=== PATIENT | female | born 1955 | race Caucasian/White ===

== ENCOUNTER 2017-06-03 14:29 | Observation (INO) | payer BC ==
[~2017-06-03] VITALS: Ht 162.6 cm; Wt 91.2 kg
[~2017-06-03 14:29] MED LIST: LACTATED RINGER'S 1000 ML INJ 1,000 ML IV ONE; NEOSTIGMINE 3 MG/3 ML SYR IV ONE; ONDANSETRON HCL 4 MG/2 ML VIAL IV PUSH ONE; PHENYLEPH/NS 1000 MCG/10 ML SYR IV ONE; PROPOFOL 200 MG/20 ML AMP IV ONE
[2017-06-03 14:31] VITALS: BP 132/62; PULSE 94; RESP 20; TEMP 99.9; O2SAT 93
--- NOTE | 2017-06-03 14:39 | PD ---
Physical Exam Time Seen by Provider: 14:36 Narrative 62yo F c/o lower abd pain since Saturday sent by Urgent Care. Denies N, V. + diarrhea. +subjective fevers. +cold shills and sweating. Urgent care said she had trace of blood in urine. Patient seen in triage. VS reviewed. Awaiting bed placement. Data Data Last Documented VS Vital Signs Date Time Temp Pulse Resp B/P Pulse Ox O2 Delivery O2 Flow Rate FiO2 06/03/17 14:31 99.9 94 20 132/62 93 Room Air MDM Supervised Visit with ARON: Lauren Allen Jun 03, 2017 14:39
[2017-06-03] MEDS ORDERED: LIPI10TA PO (15:22)
[2017-06-03] MEDS ORDERED: SODIUM CHLORIDE 0.9% FLUSH 10 ML FLUSH IV FLUSH PRN ×2 (15:30→23:15)
[2017-06-03] MEDS ORDERED: MORPHINE SULFATE 4 MG/ML INJ IV PUSH ONE ×2 (15:45→20:00)
[2017-06-03] MEDS ORDERED: ONDANSETRON HCL 4 MG/2 ML VIAL IV ONE (15:45)
[2017-06-03 16:05] LABS: AUTOMATED NEUTROPHIL # 9.7 TH/MM3 (1.8-7.7); BASOPHIL % 0.3 % (0.0-2.0); EOSINOPHIL % 0.1 % (0.0-4.0); HEMATOCRIT 43.7 % (35.0-46.0); HEMO FLAGS DIFF FINAL; LYMPH % 9.7 % (9.0-44.0); LYMPHOCYTE # 1.1 TH/MM3 (1.0-4.8); MEAN CELL VOLUME 92.4 FL (80.0-100.0); MEAN CORPUSCULAR HEMOGLOBIN 31.8 PG (27.0-34.0); MEAN CORPUSCULAR HGB CONC 34.4 % (32.0-36.0); MONO % 6.1 % (0.0-8.0); NEUT % 83.8 % (16.0-70.0); PLATELET COUNT 172 TH/MM3 (150-450); RED BLOOD COUNT 4.73 MIL/MM3 (4.00-5.30); RED CELL DISTRIBUTION WIDTH 14.4 % (11.6-17.2); WHITE BLOOD COUNT 11.6 TH/MM3 (4.0-11.0)
[2017-06-03 16:07] LABS: BLOOD, URINE TRACE (NEG); COMMENT (UR) CULT NOT INDICATED; CULTURE IF INDICATED CULT NOT INDICATED; GLUCOSE,URINE TRACE mg/dL (NEG); HYALINE CAST, URINE 3 /lpf (RARE); KETONE, URINE 10 mg/dL (NEG); MUCUS URINE FEW /lpf (OCC); NITRITE,URINE NEG (NEG); PH, URINE 5.5 (5.0-8.5); SQUAMOUS EPITHELIAL CELL URINE 4 /hpf (0-5); URINE COLOR DARK-YELLOW (YELLW/STRAW)
[2017-06-03 16:41] LABS: APTT (PATIENT) 24.7 SEC (24.3-30.1); PROTHROMBIN TIME - PATIENT 11.3 SEC (9.8-11.6)
--- NOTE | 2017-06-03 17:00 | PD ---
HPI Chief Complaint: Abdominal Pain Time Seen by Provider: 15:14 Travel History International Travel<30 days: No Contact w/Intl Traveler<30days: No Traveled to known affect area: No History of Present Illness HPI The patient was seen and examined in the presence of the nurse. This patient complains of abdominal pain. Location is left lower quadrant. Duration 2 days. She's had some low-grade temperatures. No vomiting or rectal bleeding. She does not have any history of abdominal problems. Symptoms severity is moderate. No alleviating factors. PFSH Past Surgical History Surgical History: No Previous Surgery Social History Alcohol Use: Yes (2-3 DRINKS/DAILY) Tobacco Use: No Substance Use: No Allergies-Medications (Allergen,Severity, Reaction): Coded Allergies: Sulfa (Verified Allergy, Unknown, 06/03/17) Tylenol/Codeine (Verified Allergy, Unknown, 06/03/17) Reported Meds & Prescriptions Reported Meds & Active Scripts Active Reported Lipitor (Atorvastatin Calcium) 10 Mg Tab 10 Mg PO HS Review of Systems General / Constitutional: Positive: Fever Eyes: No: Visual changes HENT: No: Headaches Cardiovascular: No: Chest Pain or Discomfort Respiratory: No: Shortness of Breath Gastrointestinal: Positive: Nausea, Abdominal Pain Genitourinary: No: Dysuria Musculoskeletal: No: Pain Skin: No Rash Neurologic: No: Weakness Psychiatric: No: Depression Endocrine: No: Polydipsia Hematologic/Lymphatic: No: Easy Bruising Physical Exam Narrative GENERAL: Well-nourished, well-developed patient with abdominal pain. SKIN: Focused skin assessment reveals no rash and nodules. Skin is Warm and dry. HEAD: Atraumatic. Normocephalic. EYES: Pupils equal and round. No scleral icterus. No injection or drainage. ENT: No nasal bleeding or discharge. Mucous membranes pink and moist. NECK: Trachea midline. No JVD. CARDIOVASCULAR: Regular rate and rhythm. No murmur appreciated. RESPIRATORY: No accessory muscle use. Clear to auscultation. Breath sounds equal bilaterally. GASTROINTESTINAL: Abdomen soft, left lower quadrant is tender but no rebound or guarding, nondistended. Hepatic and splenic margins not palpable. MUSCULOSKELETAL: No obvious deformities. No clubbing. No cyanosis. No edema. NEUROLOGICAL: Awake and alert. No obvious cranial nerve deficits. Motor grossly within normal limits. Normal speech. PSYCHIATRIC: Appropriate mood and affect; insight and judgment normal. Data Data Last Documented VS Vital Signs Date Time Temp Pulse Resp B/P Pulse Ox O2 Delivery O2 Flow Rate FiO2 06/03/17 15:17 18 06/03/17 14:31 99.9 94 132/62 93 Room Air Orders Basic Metabolic Panel (Bmp) (06/03/17 15:21) Complete Blood Count With Diff (06/03/17 15:21) Prothrombin Time / Inr (Pt) (06/03/17 15:21) Act Partial Throm Time (Ptt) (06/03/17 15:21) Urinalysis - C+S If Indicated (06/03/17 15:21) Ct Abd/Pel W Iv Contrast(Rout) (06/03/17 15:21) Iv Access Insert/Monitor (06/03/17 15:21) Ecg Monitoring (06/03/17 15:21) Oximetry (06/03/17 15:21) Sodium Chloride 0.9% Flush (Ns Flush) (06/03/17 15:30) Ondansetron Inj (Zofran Inj) (06/03/17 15:45) Morphine Inj (Morphine Inj) (06/03/17 15:45) Labs Laboratory Tests Test 06/03/17 06/03/17 15:25 15:28 White Blood Count 11.6 TH/MM3 Red Blood Count 4.73 MIL/MM3 Hemoglobin 15.0 GM/DL Hematocrit 43.7 % Mean Corpuscular Volume 92.4 FL Mean Corpuscular Hemoglobin 31.8 PG Mean Corpuscular Hemoglobin 34.4 % Concent Red Cell Distribution Width 14.4 % Platelet Count 172 TH/MM3 Mean Platelet Volume 10.0 FL Neutrophils (%) (Auto) 83.8 % Lymphocytes (%) (Auto) 9.7 % Monocytes (%) (Auto) 6.1 % Eosinophils (%) (Auto) 0.1 % Basophils (%) (Auto) 0.3 % Neutrophils # (Auto) 9.7 TH/MM3 Lymphocytes # (Auto) 1.1 TH/MM3 Monocytes # (Auto) 0.7 TH/MM3 Eosinophils # (Auto) 0.0 TH/MM3 Basophils # (Auto) 0.0 TH/MM3 CBC Comment DIFF FINAL Differential Comment Prothrombin Time 11.3 SEC Prothromb Time International 1.0 RATIO Ratio Activated Partial 24.7 SEC Thromboplast Time Urine Color DARK-YELLOW Urine Turbidity HAZY Urine pH 5.5 Urine Specific [place] 1.031 Urine Protein 30 mg/dL Urine Glucose (UA) TRACE mg/dL Urine Ketones 10 mg/dL Urine Occult Blood TRACE Urine Nitrite NEG Urine Bilirubin NEG Urine Urobilinogen LESS THAN 2.0 MG/DL Urine Leukocyte Esterase NEG Urine RBC 3 /hpf Urine WBC 2 /hpf Urine Squamous Epithelial 4 /hpf Cells Urine Hyaline Casts 3 /lpf Urine Mucus FEW /lpf Microscopic Urinalysis Comment CULT NOT INDICATED MDM Medical Decision Making Medical Screen Exam Complete: Yes Emergency Medical Condition: Yes Medical Record Reviewed: Yes Differential Diagnosis Diverticulitis, colitis, ileus Narrative Course I have reviewed the patient's electronic medical record. I've ordered abdominal pain workup. Case checked out to : At 5 PM. Kar Rodriguez MD Jun 03, 2017 16:59
[2017-06-03 17:24] VITALS: BP 109/52; PULSE 97; RESP 18; O2SAT 94; O2SAT 98
[2017-06-03 19:08] LABS: BICARBONATE 21.8 MEQ/L (21.0-32.0); POTASSIUM 4.2 MEQ/L (3.5-5.1)
[2017-06-03] MEDS ORDERED: IOHEXOL 350 MG/ML 10 ML VIAL (for RAD DIAG) IV ONE (19:42)
--- NOTE | 2017-06-03 19:48 | RADRPT ---
EXAM DATE/TIME: 06/03/2017 19:16 [facility] COMPARISON: No previous studies available for comparison. INDICATIONS : Bilateral lower quadrant pain. IV CONTRAST: 75 cc Omnipaque 350 (iohexol) IV ORAL CONTRAST: No oral contrast ingested. RADIATION DOSE: 9.96 CTDIvol (mGy) MEDICAL HISTORY : None SURGICAL HISTORY : None. ENCOUNTER: Initial ACUITY: 3 days PAIN SCALE: 9/10 LOCATION: Bilateral lower quadrant TECHNIQUE: Volumetric scanning of the abdomen and pelvis was performed. Using automated exposure control and ad justment of the mA and/or kV according to patient size, radiation dose was kept as low as reasonably achievable to obtain optimal diagnostic quality images. DICOM format image data is available electro nically for review and comparison. FINDINGS: LOWER LUNGS: Trace atelectasis at the bases, mainly on the left. 3 mm benign granuloma the right middle lobe. LIVER: 20.1 cm craniocaudal and mild fatty infiltrated. SPLEEN: Normal size without lesion. PANCREAS: Within normal limits. KIDNEYS: Normal in size and shape. There is no mass, stone or hydronephrosis. ADRENAL GLANDS: Within normal limits. VASCULAR: There is no aortic aneurysm. BOWEL/MESENTERY: Distended, thick walled and indurated appendix with periappendiceal edema noted. There is a fecalith at the base of the appendix and an additional fecalith at the mid to distal portion of the appendix. No abscess, perforation or obstruction. A small hiatal hernia. ABDOMINAL WALL: Within normal limits. RETROPERITONEUM: There is no lymphadenopathy. BLADDER: No wall thickening or mass. REPRODUCTIVE: Within normal limits. INGUINAL: There is no lymphadenopathy or hernia. MUSCULOSKELETAL: Within normal limits for patient age. CONCLUSION: 1. Uncomplicated acute appendicitis. 2. Incidental findings of enlarged, mild fatty infiltrated liver and a small hiatal hernia. 3. Trace atelectasis of the left lung base. Bradford Tomlin MD on June 03, 2017 at 19:43 Board Certified Radiologist. This report was verified electronically.
[2017-06-03] MEDS ORDERED: PIPERACIL-TAZO 4.5 GM PREMIX 100 ML IV ONE (20:00)
--- NOTE | 2017-06-03 20:08 | PD ---
Data Data Last Documented VS Vital Signs Date Time Temp Pulse Resp B/P Pulse Ox O2 Delivery O2 Flow Rate FiO2 06/03/17 17:24 97 18 109/52 94 Room Air 06/03/17 14:31 99.9 Orders Basic Metabolic Panel (Bmp) (06/03/17 15:21) Complete Blood Count With Diff (06/03/17 15:21) Prothrombin Time / Inr (Pt) (06/03/17 15:21) Act Partial Throm Time (Ptt) (06/03/17 15:21) Urinalysis - C+S If Indicated (06/03/17 15:21) Ct Abd/Pel W Iv Contrast(Rout) (06/03/17 15:21) Iv Access Insert/Monitor (06/03/17 15:21) Ecg Monitoring (06/03/17 15:21) Oximetry (06/03/17 15:21) Sodium Chloride 0.9% Flush (Ns Flush) (06/03/17 15:30) Ondansetron Inj (Zofran Inj) (06/03/17 15:45) Morphine Inj (Morphine Inj) (06/03/17 15:45) Iohexol 350 Inj (Omnipaque 350 Inj) (06/03/17 19:42) Piperacil-Tazo 4.5 Gm Premix (Zosyn 4.5 (06/03/17 20:00) Morphine Inj (Morphine Inj) (06/03/17 20:00) Labs Laboratory Tests Test 06/03/17 06/03/17 06/03/17 15:25 15:28 18:13 White Blood Count 11.6 TH/MM3 Red Blood Count 4.73 MIL/MM3 Hemoglobin 15.0 GM/DL Hematocrit 43.7 % Mean Corpuscular Volume 92.4 FL Mean Corpuscular Hemoglobin 31.8 PG Mean Corpuscular Hemoglobin 34.4 % Concent Red Cell Distribution Width 14.4 % Platelet Count 172 TH/MM3 Mean Platelet Volume 10.0 FL Neutrophils (%) (Auto) 83.8 % Lymphocytes (%) (Auto) 9.7 % Monocytes (%) (Auto) 6.1 % Eosinophils (%) (Auto) 0.1 % Basophils (%) (Auto) 0.3 % Neutrophils # (Auto) 9.7 TH/MM3 Lymphocytes # (Auto) 1.1 TH/MM3 Monocytes # (Auto) 0.7 TH/MM3 Eosinophils # (Auto) 0.0 TH/MM3 Basophils # (Auto) 0.0 TH/MM3 CBC Comment DIFF FINAL Differential Comment Prothrombin Time 11.3 SEC Prothromb Time International 1.0 RATIO Ratio Activated Partial 24.7 SEC Thromboplast Time Urine Color DARK-YELLOW Urine Turbidity HAZY Urine pH 5.5 Urine Specific [place] 1.031 Urine Protein 30 mg/dL Urine Glucose (UA) TRACE mg/dL Urine Ketones 10 mg/dL Urine Occult Blood TRACE Urine Nitrite NEG Urine Bilirubin NEG Urine Urobilinogen LESS THAN 2.0 MG/DL Urine Leukocyte Esterase NEG Urine RBC 3 /hpf Urine WBC 2 /hpf Urine Squamous Epithelial 4 /hpf Cells Urine Hyaline Casts 3 /lpf Urine Mucus FEW /lpf Microscopic Urinalysis Comment CULT NOT INDICATED Sodium Level 135 MEQ/L Potassium Level 4.2 MEQ/L Chloride Level 105 MEQ/L Carbon Dioxide Level 21.8 MEQ/L Anion Gap 8 MEQ/L Blood Urea Nitrogen 14 MG/DL Creatinine 0.78 MG/DL Estimat Glomerular Filtration 75 ML/MIN Rate Random Glucose 161 MG/DL Calcium Level 8.5 MG/DL MDM Supervised Visit with ARON: No Narrative Course The patient was initially evaluated by the previous provider and signed out to me at the beginning my shift pending labs, CT abdomen pelvis, and disposition. See his note for further details. Briefly this a 62-year-old female who is here for evaluation of lower abdominal pain since yesterday. She has also had decreased appetite. No history of abdominal surgeries. Pain is moderate to severe, worse with movement and palpation. At time of my assessment the patient had received morphine and stated that her pain was improved. She does have lower abdominal tenderness, right greater than left without peritoneal signs. Initial vital signs show heart rate 94, blood pressure 132/62, pulse ox 93% on room air, oral temp of 99.9F. CBC shows WBC 11.6, hemoglobin 15, hematocrit 43.7, platelets 172, neutrophils 83.8%. BMP is remarkable for random glucose 161, otherwise unremarkable. UA is not suggestive of UTI. CT abdomen pelvis: Uncomplicated acute appendicitis, incidental findings of enlarged, mildly fatty infiltrated liver and small hiatal hernia. Trace atelectasis of the left lung base. Patient was started on IV Zosyn. Case discussed with on-call general surgeon Dr. Ellison who plans on taking the patient to the operating room as soon as he can schedule her. Patient made aware of all findings and plan for appendectomy. Diagnosis Primary Impression: Acute appendicitis Qualified Code: K35.80 - Acute appendicitis, unspecified acute appendicitis type Admitting Information Admitting Physician Requests: Admit Sadiq Naranjo MD Jun 03, 2017 20:08
[2017-06-03] MEDS ORDERED: BUPIVACAINE/EPINEPHRINE 0.25% 50 ML VIAL ONE (20:45)
[2017-06-03] MEDS ORDERED: FAMOTIDINE 20 MG/2 ML VIAL ONE (21:22)
[2017-06-03] MEDS: SODIUM CHLOR 0.9% 1000 ML INJ 1,000 ML IV SCH (23:02)
[2017-06-03] MEDS ORDERED: ONDANSETRON HCL 4 MG/2 ML VIAL IV PRN (23:15)
[2017-06-03] MEDS ORDERED: NALOXONE HCL 0.4 MG/ML AMP IV PRN (23:15)
[2017-06-03] MEDS ORDERED: LORazepam 2 MG/ML VIAL IVP PRN (23:15)
[2017-06-03] MEDS ORDERED: IBUPROFEN 400 MG TAB PO PRN (23:15)
[2017-06-03] MEDS ORDERED: BENZOCAINE 20% ORAL SPR 60 ML CAN MT PRN (23:15)
[2017-06-03] MEDS ORDERED: Post-op Orders (for Pharmacy) MISC XX ONE (23:15)
[2017-06-03] MEDS: SODIUM CHLORIDE 0.9% FLUSH 10 ML FLUSH IV FLUSH SCH (23:15)
[2017-06-03] MEDS ORDERED: HYDROmorphone HCL PF 1 MG/ML VIAL IV PRN (23:15)
[2017-06-03] MEDS ORDERED: diphenhydrAMINE HCL 50 MG/ML VIAL IV PRN (23:15)
[2017-06-03] MEDS ORDERED: KETOROLAC TROMETHAMINE 30 MG/ML (IVP) VIAL ONE (23:25)
[2017-06-03] MEDS ORDERED: PROMETHAZINE INJ 25 MG/ML VIAL ONE (23:28)
[2017-06-03] MEDS ORDERED: MIDAZOLAM HCL 2 MG/2 ML VIAL ONE (23:30)
[2017-06-03] MEDS ORDERED: fentaNYL CITRATE 250 MCG/5 ML AMP ONE (23:31)
[2017-06-03] MEDS: metroNIDAZOLE 500 MG INJ 100 ML IV SCH (23:36)
[2017-06-03] MEDS ORDERED: DO NOT ADM ANY ANTICOAGULANT DRUGS PRN (23:45)
[2017-06-03] MEDS ORDERED: KETOROLAC TROMETHAMINE 30 MG/ML (IVP) VIAL IV PUSH ONE (23:45)
[2017-06-04] VITALS (7 sets, daily range): BP systolic 93–110; BP diastolic 51–69; PULSE 68–97; RESP 16–18; TEMP 96.9–99.6; O2SAT 93–99
[2017-06-04] MEDS: PANTOPRAZOLE SODIUM 40 MG VIAL IV SCH (00:37)
[2017-06-04] MEDS: PIPERACIL-TAZO 3.375 GM PREMIX 50 ML IV SCH ×4 (02:01→20:04)
--- NOTE | 2017-06-04 05:03 | EKG ---
Date Performed: 06/03/2017 Time Performed: 21:34:03 PTAGE: 62 years EKG: SINUS TACHYCARDIA MINIMAL ST DEPRESSION ABNORMAL RHYTHM ECG NO PREVIOUS TRACING DOCTOR: Silviano Corral Interpretating Date/Time 06/04/2017 05:01:18
[2017-06-04] MEDS: metroNIDAZOLE 500 MG INJ 100 ML IV SCH ×3 (06:03→18:47)
--- NOTE | 2017-06-04 08:33 | MH ---
cc: MALACHI SALCIDO DATE OF ADMISSION 06/03/2017 CHIEF COMPLAINT Acute appendicitis HISTORY OF PRESENT ILLNESS The patient is a 62-year-old female who presented to [facility] emergency department with two days of increasing suprapubic and left lower quadrant pain. The patient states that she has never had pain like this prior and she has developed a gradual onset of the pain including nausea without vomiting. The patient also denies fevers, chills or night sweats. The patient has had normal bowel movements, but has had a decreased appetite with no p.o. intake for 24 hours. Upon evaluation in the emergency department, the patient underwent a CT scan which showed significant inflammation around the appendix concerning for a ruptured appendicitis. The patient was also noted to have an elevated white blood cell count of 11.6. General surgery was consulted from the emergency department for evaluation. REVIEW OF SYSTEMS A 12-point review of systems was discussed with the patient and is negative except for the pertinent positives mentioned above in the history of present illness. PAST SURGICAL HISTORY None PAST MEDICAL HISTORY 1. Hypertension 2. Hyperlipidemia MEDICATIONS Lipitor ALLERGIES TYLENOL, CODEINE AND SULFA. SOCIAL HISTORY The patient occasionally drinks alcohol. Denies illicit drug use or substance abuse or any tobacco use. FAMILY HISTORY Noncontributory PHYSICAL EXAM VITAL SIGNS: Temperature 99.9 degrees, pulse 94, blood pressure 132/62. GENERAL: The patient is a well-developed, well-nourished female in no acute distress. HEAD: Normocephalic, atraumatic. EARS, NOSE, AND THROAT: Pupils round and reactive to accommodation and light. Sclerae is anicteric. Mucous membranes are moist. NECK: Supple. No JVD. LUNGS: Clear to auscultation bilaterally with a nonlabored breathing pattern. HEART: Regular rate and rhythm. PMI is nondisplaced. ABDOMEN: Soft, tender to palpation in the suprapubic area with focal peritonitis with no diffuse peritonitis. No surgical scars. Hypoactive bowel signs. BACK: No CVA tenderness. EXTREMITIES: No clubbing, cyanosis or edema. NEUROLOGIC: The patient is alert and oriented x3 moving all extremities non-focally. Cranial nerves II-XII are grossly intact. ASSESSMENT/PLAN The patient is a 62-year-old female with two days of right lower quadrant pain likely appendicitis, possibly advanced appendicitis. There is no obvious signs of rupture on the CT scan. The patient has significant focal peritonitis. I discussed with the patient options including laparoscopic appendectomy for appendicitis, as well as expected outcomes, risks, benefits and alternatives for this procedure and treatment. The patient agreed to undergo the procedure. We will go to the operating room for laparoscopic appendectomy urgently based on OR availability. I will continue antibiotics and pain medications and IV fluids at this time. MD ZACHERY Motley/SANDRA /11:10 PM /8:23 AM
[2017-06-04] MEDS: SODIUM CHLOR 0.9% 1000 ML INJ 1,000 ML IV SCH (09:02)
--- NOTE | 2017-06-04 12:51 | HHI.PR ---
Subjective Subjective Notes Up to chair Pain controlled Objective Vitals/I&O Vital Signs Date Time Temp Pulse Resp B/P Pulse Ox O2 Delivery O2 Flow Rate FiO2 06/04/17 09:42 94 06/04/17 08:00 96.9 97 16 93/62 06/03/17 23:45 3 06/03/17 17:24 Room Air Labs Laboratory Tests Test 06/03/17 06/03/17 06/03/17 15:25 15:28 18:13 White Blood Count 11.6 Red Blood Count 4.73 Hemoglobin 15.0 Hematocrit 43.7 Mean Corpuscular Volume 92.4 Mean Corpuscular Hemoglobin 31.8 Mean Corpuscular Hemoglobin 34.4 Concent Red Cell Distribution Width 14.4 Platelet Count 172 Mean Platelet Volume 10.0 Neutrophils (%) (Auto) 83.8 Lymphocytes (%) (Auto) 9.7 Monocytes (%) (Auto) 6.1 Eosinophils (%) (Auto) 0.1 Basophils (%) (Auto) 0.3 Neutrophils # (Auto) 9.7 Lymphocytes # (Auto) 1.1 Monocytes # (Auto) 0.7 Eosinophils # (Auto) 0.0 Basophils # (Auto) 0.0 CBC Comment DIFF FINAL Differential Comment Prothrombin Time 11.3 Prothromb Time International 1.0 Ratio Activated Partial 24.7 Thromboplast Time Urine Color DARK-YELLOW Urine Turbidity HAZY Urine pH 5.5 Urine Specific [place] 1.031 Urine Protein 30 Urine Glucose (UA) TRACE Urine Ketones 10 Urine Occult Blood TRACE Urine Nitrite NEG Urine Bilirubin NEG Urine Urobilinogen LESS THAN 2.0 Urine Leukocyte Esterase NEG Urine RBC 3 Urine WBC 2 Urine Squamous Epithelial 4 Cells Urine Hyaline Casts 3 Urine Mucus FEW Microscopic Urinalysis Comment CULT NOT INDICATED Sodium Level 135 Potassium Level 4.2 Chloride Level 105 Carbon Dioxide Level 21.8 Anion Gap 8 Blood Urea Nitrogen 14 Creatinine 0.78 Estimat Glomerular Filtration 75 Rate Random Glucose 161 Calcium Level 8.5 Cardiovascular: Regular Lungs: Clear Abdomen: Other (lap sites c/d/i; PIETRO with slightly cloudy fluid ) Extremities: No edema A/P Assessment and Plan 62 year old female POD1 lap appy; perforated -Clear liquids -OOB and mobilize -Pain control -Continue antibiotics -CBC in AM Temi HarryP Jun 04, 2017 12:51
[2017-06-04] MEDS: HYDROmorphone HCL PF 1 MG/ML VIAL IV PRN ×2 (14:39→21:41)
[2017-06-04] MEDS: SODIUM CHLORIDE 0.9% FLUSH 10 ML FLUSH IV FLUSH SCH (20:05)
--- NOTE | 2017-06-04 20:43 | MP ---
cc: MALACHI SALCIDO MD Corrected Copy: 07/10/17 DATE OF SURGERY 06/03/17 PREOPERATIVE DIAGNOSIS Acute appendicitis POSTOPERATIVE DIAGNOSIS Acute ruptured appendicitis. ATTENDING SURGEON Sabino Salcido MD IMAGING SYSTEM ADMINISTRATOR Staff ANESTHESIA General and local anesthetic FINDINGS Peritonitis throughout the lower abdomen. Ruptured and gangrenous appendicitis without significant abscess formation. INDICATIONS FOR PROCEDURE The patient is a 62-year-old female with two days of suprapubic and left lower quadrant abdominal pain who presented to [facility] for evaluation. The patient underwent CT scan which showed likely appendicitis. Risks, benefits and alternatives to laparoscopic appendectomy were discussed with the patient by myself. The patient agreed to undergo the procedure. PROCEDURE IN DETAIL The patient was taken to the operating room, placed in supine position, placed under general endotracheal anesthesia. The patient's abdomen was prepped and draped in sterile fashion. Time-out was performed. We entered the abdomen with OptiView direct entry technique. We made a small incision 1 cm to the left of the umbilicus with the 11-blade scalpel. We used the 10-mm trocar and the 5 mm 0 degree camera to visualize direct entry into the abdomen through the rectus sheath. We insufflated the abdomen and surveyed the abdomen with a 5 mm 30 degree camera. There was no evidence of any complication from our entry. We then placed a 5-mm port in suprapubic position and a second 5-mm port in the left lower quadrant under visualization of the laparoscope. We were able to survey the abdomen. There was significant peritonitis throughout the abdomen, particularly in the pubis and in the right lower quadrant. We were able to lyse some inflammatory adhesions and find the appendix down towards the pelvis. This was clearly gangrenous and ruptured. We were able to grasp this at the base which was viable and healthy tissue and dissect the window at the base of the appendix with the [place] dissector. We used a blue load on the [employer] GI laparoscopic stapler to divide the appendix which was splayed into the tinea. We then did a second load which was a white vascular load and divided the mesoappendix without difficulty. The appendix was removed with the abdomen with an EndoCatch bag through the periumbilical port. We were able to use the Bovie electrocautery to get hemostasis at our line due to some to breakthrough bleeding at the staple line. We had excellent hemostasis. We did use a suction sales expert 3 liters of sterile saline and irrigated and suction until all suction was clear. At this point in time, we removed all contamination which was essentially purulent, non-feculent type contamination. We placed a 19-Kinyarwanda round Lawrence drain to the suprapubic port site and looped it in the pelvis and into the right lower quadrant. Sutured this in place with a nylon suture. At this point in time, we turned towards closure. No evidence of any other intra-abdominal pathology. We removed our ports under visualization of the laparoscope and expressed pneumoperitoneum. We closed the periumbilical port with a [id number] 0 Vicryl suture. We closed the skin with 4-0 Monocryl and Dermabond. The patient's drain was placed to bulb suction. The patient was discontinued from anesthesia and taken to the PACU in stable condition. The patient tolerated the procedure well. No apparent complications. All counts were correct and I was present and scrubbed for the entire procedure. MD ZACHERY Motley/ /11:14 PM /8:28 PM MTDD
[2017-06-04] MEDS ORDERED: ATORVASTATIN 10 MG TAB PO SCH (21:00)
[2017-06-04] MEDS ORDERED: ENOXAPARIN SODIUM 40 MG/0.4 ML SYRINGE SQ SCH (22:00)
[2017-06-05 00:01] VITALS: BP 93/50; PULSE 75; RESP 18; TEMP 98.9; O2SAT 95
[2017-06-05] MEDS: PANTOPRAZOLE SODIUM 40 MG VIAL IV SCH (00:36)
[2017-06-05] MEDS: metroNIDAZOLE 500 MG INJ 100 ML IV SCH ×3 (00:36→12:31)
[2017-06-05] MEDS: PIPERACIL-TAZO 3.375 GM PREMIX 50 ML IV SCH ×3 (02:25→13:47)
[2017-06-05 03:23] VITALS: BP 100/52; PULSE 75; RESP 18; TEMP 98.1; O2SAT 94
[2017-06-05 08:00] VITALS: BP 133/61; PULSE 88; RESP 18; TEMP 97.5; O2SAT 97
[2017-06-05] MEDS: SODIUM CHLORIDE 0.9% FLUSH 10 ML FLUSH IV FLUSH SCH (09:00)
[2017-06-05] MEDS: SODIUM CHLOR 0.9% 1000 ML INJ 1,000 ML IV SCH ×2 (09:06→15:02)
[2017-06-05 10:09] LABS: AUTOMATED NEUTROPHIL # 8.9 TH/MM3 (1.8-7.7); BASOPHIL % 0.2 % (0.0-2.0); EOSINOPHIL # 0.1 TH/MM3 (0-0.4); EOSINOPHIL % 0.6 % (0.0-4.0); HEMATOCRIT 35.3 % (35.0-46.0); HEMO FLAGS DIFF FINAL; LYMPH % 8.6 % (9.0-44.0); LYMPHOCYTE # 0.9 TH/MM3 (1.0-4.8); MEAN CELL VOLUME 93.7 FL (80.0-100.0); MEAN CORPUSCULAR HEMOGLOBIN 31.3 PG (27.0-34.0); MEAN CORPUSCULAR HGB CONC 33.4 % (32.0-36.0); MONO % 7.4 % (0.0-8.0); NEUT % 83.2 % (16.0-70.0); PLATELET COUNT 147 TH/MM3 (150-450); RED BLOOD COUNT 3.76 MIL/MM3 (4.00-5.30); RED CELL DISTRIBUTION WIDTH 14.4 % (11.6-17.2); WHITE BLOOD COUNT 10.7 TH/MM3 (4.0-11.0)
[2017-06-05 12:00] VITALS: BP 122/58; PULSE 90; RESP 18; TEMP 97.8; O2SAT 91
[2017-06-05 16:00] VITALS: BP 116/61; PULSE 87; RESP 18; TEMP 99.4; O2SAT 96
[2017-06-05] MEDS ORDERED: OXYC1TAB13 PO (16:53)
[2017-06-05] MEDS ORDERED: METR-1 PO (16:53)
[2017-06-05] MEDS ORDERED: CIPR500T2 PO (16:53)
== END 2017-06-05 17:36 | disposition home or self-care (01) ==
LOC: NEPD 14:29 → INTOOBSV 20:07 → NEDA 20:07 → N06A 06-04 00:08
PROVIDERS: ADMIT Surgery; ATTEND Surgery
DX: K35.2 Acute appendicitis with generalized peritonitis (principal); I10 Essential (primary) hypertension; E78.5 Hyperlipidemia, unspecified
CPT/HCPCS: 00840; 44970; 74177; 80048; 81001; 85025; 85610; 85730; 88304; 93005; 94150; 96372; 96374; 96375; 96376; 99285; C9113; G0378; J1170; J1650; J2250; J2270; J2370; J2405; J2543; J2550; J2710; J3010; J7030; J7120; Q9967; J1885